=== PATIENT | male | born 1970 | race Caucasian/White ===

== ENCOUNTER 2017-08-21 14:43 | Inpatient (IN) ==
[2017-08-21] MEDS ORDERED: METOCLOPRAMIDE 10 MG/2 ML VIAL ONE (14:59)
[2017-08-21] MEDS ORDERED: ONDANSETRON 4 MG/2 ML VIAL ONE ×2 (14:59→15:16)
[2017-08-21] MEDS ORDERED: ONDANSETRON 4 MG/2 ML VIAL IV STA (15:00)
[2017-08-21] MEDS ORDERED: SODIUM CHLORIDE 0.9% 1,000 ML IV STA (15:00)
[2017-08-21] MEDS ORDERED: METOCLOPRAMIDE 10 MG/2 ML VIAL IV STA (15:00)
[2017-08-21] MEDS ORDERED: ASPIRIN 325 MG TABLET PO STA (15:04)
[2017-08-21] MEDS ORDERED: NITROGLYCERIN 2% OINT 1 INCH/GM PACK TOP STA (15:04)
[2017-08-21] MEDS ORDERED: TICAGRELOR 90 MG TABLET ONE (15:08)
[2017-08-21] MEDS ORDERED: NITROGLYCERIN 2% OINT 1 INCH/GM PACK TOP ONE (15:08)
[2017-08-21] MEDS ORDERED: HEPARIN 5,000 UNIT/1 ML VIAL ONE ×2 (15:09→15:53)
[2017-08-21] MEDS ORDERED: HEPARIN 5,000 UNIT/1 ML VIAL IV STA (15:09)
[2017-08-21] MEDS ORDERED: TICAGRELOR 90 MG TABLET PO STA (15:10)
[2017-08-21 15:16] LABS: Basophils # 0.1 10*3/uL (0.0-0.2); Basophils % 0.6 % (0.0-0.8); Eosinophils # 0.2 10*3/uL (0.0-0.87); Eosinophils % 1.6 % (0.00-10.9); Hematocrit 47.4 VOL% (42.0-52.0); Hemoglobin 16.6 GM/DL (14.0-18.0); Immature Granulocytes % 0.3 %; Immature Granulocytes Absolute 0.05 #; Lymphocytes # 3.8 10*3/uL (1.4-4.0); Lymphocytes % 26.3 % (21.2-54.2); Mean Corpuscular Hemoglobin 33 PG (27-34); Mean Corpuscular Volume 93.5 FL (87-102); Mean Platelet Volume 9.8 FL (9.6-12.0); Monocytes # 1.2 10*3/uL (0.11-0.8); Neutrophils # 9.1 10*3/uL (1.4-7.4); Neutrophils % 63.2 % (38.7-73.9); Platelet Count 268 T/CUMM (130-400); Red Blood Count 5.07 MC/CUMM (3.8-5.5); Red Cell Distribution Width 12.8 % (9.3-17.3); White Blood Count 14.3 T/CUMM (4-12)
[2017-08-21] MEDS ORDERED: MORPHINE 2 MG/1 ML SYRINGE ONE (15:16)
[2017-08-21 15:28] LABS: INR 1.1; PT Patient Result 11.7 SECS; Partial Thromboplastin Time 27.7 SECS (0-40)
[2017-08-21 15:34] LABS: Albumin 3.7 G/DL (3.4-5.0); Bilirubin,Total 0.5 MG/DL (0.2-1.0); Osmolality,Calculated 281.3 MOS/KG (273-304); Potassium 4.2 MMOL/L (3.5-5.1)
[2017-08-21] MEDS ORDERED: MIDAZOLAM 2 MG/2 ML VIAL ONE (15:36)
[2017-08-21] MEDS ORDERED: MEPERIDINE 25 MG/1 ML VIAL ONE (15:36)
[2017-08-21] MEDS ORDERED: LIDOCAINE 1% 20 ML VIAL ONE (15:36)
[2017-08-21] MEDS ORDERED: HYDROmorphone 2 MG/1 ML VIAL ONE (15:48)
[2017-08-21] MEDS ORDERED: MORPHINE 2 MG/1 ML SYRINGE IV ONE (15:59)
[2017-08-21] MEDS ORDERED: DOBUTamine 500 MG/250 ML PREMIX IV ONE ×2 (16:22→16:29)
[2017-08-21] MEDS ORDERED: ASPIRIN CHEW 81 MG TABLET PO ONE (16:47)
[2017-08-21] MEDS ORDERED: ACETAMINOPHEN/CODEINE 300-30 MG TABLET PO PRN (17:50)
[2017-08-21] MEDS ORDERED: MAGNESIUM SULF RIDER 4 GM in PREMIX 1 EACH IV PRN (17:50)
[2017-08-21] MEDS ORDERED: MAGNESIUM SULF RIDER 2 GM in PREMIX 1 EACH IV PRN (17:50)
[2017-08-21] MEDS ORDERED: ZALEPLON 5 MG CAPSULE PO PRN (17:50)
[2017-08-21] MEDS ORDERED: ACETAMINOPHEN 325 MG TABLET PO PRN (17:50)
[2017-08-21] MEDS ORDERED: SODIUM CHLORIDE 0.9% 1,000 ML IV SCH (18:00)
[2017-08-21] MEDS ORDERED: INFLUENZA VIRUS VACCINE 0.5 ML SYRINGE IM ONE (18:04)
[2017-08-21] MEDS: TICAGRELOR 90 MG TABLET PO SCH (21:39)
[2017-08-21] MEDS ORDERED: ROSUVASTATIN 10 MG TABLET PO SCH (22:00)
[2017-08-21 23:25] LABS: Risk Ratio 10.04; VLDL CHOLESTEROL 114.8 MG/DL
[2017-08-22 05:27] LABS: Basophils % 0.3 % (0.0-0.8); Eosinophils % 0.3 % (0.00-10.9); Hematocrit 39.1 VOL% (42.0-52.0); Immature Granulocytes % 0.4 %; Immature Granulocytes Absolute 0.05 #; Lymphocytes # 2.7 10*3/uL (1.4-4.0); Lymphocytes % 22.2 % (21.2-54.2); Mean Corpuscular HGB Conc 35.8 GM/DL (32-36); Mean Corpuscular Hemoglobin 33 PG (27-34); Mean Corpuscular Volume 92.7 FL (87-102); Mean Platelet Volume 10.2 FL (9.6-12.0); Monocytes % 8.2 % (1.7-12.7); Neutrophils # 8.2 10*3/uL (1.4-7.4); Neutrophils % 68.6 % (38.7-73.9); Platelet Count 200 T/CUMM (130-400); Red Blood Count 4.22 MC/CUMM (3.8-5.5); Red Cell Distribution Width 13.2 % (9.3-17.3); White Blood Count 11.9 T/CUMM (4-12)
[2017-08-22 06:03] LABS: Albumin 3.1 G/DL (3.4-5.0); Bilirubin,Total 0.6 MG/DL (0.2-1.0); Calcium 8.4 MG/DL (8.5-10.1); Osmolality,Calculated 281.3 MOS/KG (273-304); Potassium 4.1 MMOL/L (3.5-5.1); Total Protein 5.9 G/DL (6.4-8.3)
[2017-08-22] MEDS: ASPIRIN CHEW 81 MG TABLET PO SCH (09:48)
[2017-08-22] MEDS: TICAGRELOR 90 MG TABLET PO SCH ×2 (09:48→20:44)
[2017-08-22] MEDS: CARVEDILOL 3.125 MG TABLET PO SCH ×2 (09:48→20:44)
[2017-08-22] MEDS: ROSUVASTATIN 20 MG TABLET PO SCH (09:48)
[2017-08-22] MEDS: PANTOPRAZOLE 40 MG TABLET PO SCH (09:48)
[2017-08-22] MEDS ORDERED: LISINOPRIL 2.5 MG TABLET PO SCH (10:00)
[2017-08-22] MEDS ORDERED: BISACODYL 5 MG TABLET PO PRN (10:27)
[2017-08-22] MEDS ORDERED: guaiFENesin/DM ER 600-30 MG TABLET PO PRN (10:27)
[2017-08-22] MEDS ORDERED: diphenhydrAMINE CAP 25 MG CAPSULE PO PRN (10:27)
[2017-08-22] MEDS: buPROPion XL 150 MG TABLET PO SCH (11:25)
[2017-08-22] MEDS ORDERED: ONDANSETRON 4 MG/2 ML VIAL IV PRN (16:07)
[2017-08-22] MEDS: NICOTINE 21 MG/24 HR PATCH TRANSDERM SCH (17:21)
[2017-08-23 05:38] LABS: Basophils % 0.3 % (0.0-0.8); Eosinophils # 0.1 10*3/uL (0.0-0.87); Eosinophils % 1.4 % (0.00-10.9); Hematocrit 38.7 VOL% (42.0-52.0); Hemoglobin 13.6 GM/DL (14.0-18.0); Immature Granulocytes % 0.4 %; Immature Granulocytes Absolute 0.04 #; Lymphocytes # 2.6 10*3/uL (1.4-4.0); Lymphocytes % 28.3 % (21.2-54.2); Mean Corpuscular HGB Conc 35.1 GM/DL (32-36); Mean Corpuscular Hemoglobin 33 PG (27-34); Mean Corpuscular Volume 92.6 FL (87-102); Monocytes % 10.7 % (1.7-12.7); Neutrophils # 5.3 10*3/uL (1.4-7.4); Neutrophils % 58.9 % (38.7-73.9); Platelet Count 164 T/CUMM (130-400); Red Blood Count 4.18 MC/CUMM (3.8-5.5)
[2017-08-23 06:11] LABS: Albumin 3.3 G/DL (3.4-5.0); Bilirubin,Direct 0.18 MG/DL (0.0-0.20); Bilirubin,Indirect 0.8 MG/DL (0.0-1.0); Calcium 8.3 MG/DL (8.5-10.1); Magnesium 2.1 MG/DL (1.8-2.4); Osmolality,Calculated 283.1 MOS/KG (273-304); Potassium 3.7 MMOL/L (3.5-5.1); Risk Ratio 5.97; Total Protein 6.2 G/DL (6.4-8.3); VLDL CHOLESTEROL 46.8 MG/DL
[2017-08-23 07:03] LABS: Hepatitis A Ab IgM Quant 0.14 Index; Hepatitis A Ab IgM Result Negative (Negative); Hepatitis B Core IgM Quant 0.11 Index; Hepatitis B Core IgM Result Negative (Negative); Hepatitis B Surface Ag Quant < 0.10 Index; Hepatitis B Surface Ag Result Negative (Negative); Hepatitis C Virus Ab Quant > 11.00 Index; Hepatitis C Virus Ab Result Positive (Negative)
[2017-08-23] MEDS: buPROPion XL 150 MG TABLET PO SCH (08:18)
[2017-08-23] MEDS: CARVEDILOL 3.125 MG TABLET PO SCH (08:18)
[2017-08-23] MEDS: ASPIRIN CHEW 81 MG TABLET PO SCH (08:18)
[2017-08-23] MEDS: TICAGRELOR 90 MG TABLET PO SCH (08:18)
[2017-08-23] MEDS: NICOTINE 21 MG/24 HR PATCH TRANSDERM SCH (08:18)
[2017-08-23] MEDS: PANTOPRAZOLE 40 MG TABLET PO SCH (08:18)
[2017-08-23] MEDS: ROSUVASTATIN 20 MG TABLET PO SCH (08:18)
[2017-08-23] MEDS ORDERED: NICOTINE 21 MG/24 HR PATCH TRANSDERM SCH (09:00)
[2017-08-23] MEDS ORDERED: VALSARTAN 80 MG TABLET PO SCH (09:00)
[2017-08-23 12:04] VITALS: BP 135/92
== END 2017-08-23 12:05 | disposition home or self-care (01) | DRG 247 ==
LOC: EDUNIT# → N.ED 14:43 → N.CL 15:28 → N.ICU 16:34 → N.CL 16:35 → N.ICU 17:24 → N.TELEN 08-22 15:00
PROVIDERS: ADMIT Internal Medicine Cardiovascular Disease; ATTEND Internal Medicine Cardiovascular Disease
PROC: CLCCHCL (ICD-10-PCS; 2017-08-21 15:45)

== ENCOUNTER 2022-05-02 12:30 | Observation (INO) ==
[2022-05-02] MEDS ORDERED: KETOROLAC 30 MG/1 ML VIAL IV STA (12:58)
[2022-05-02] MEDS ORDERED: TICAGRELOR 90 MG TABLET PO STA (12:58)
[2022-05-02] MEDS ORDERED: ASPIRIN 325 MG TABLET PO STA (12:58)
[2022-05-02] MEDS: NITROGLYCERIN SL 0.4 MG TABLET SL PRN ×2 (12:59→13:04)
[2022-05-02 13:14] LABS: Basophils # 0.1 10*3/uL (0.0-0.2); Basophils % 0.6 % (0.0-0.8); Eosinophils # 0.2 10*3/uL (0.0-0.87); Eosinophils % 1.4 % (0.00-10.9); Hematocrit 49.6 VOL% (42.0-52.0); Hemoglobin 17.2 GM/DL (14.0-18.0); Immature Granulocytes % 0.4 %; Immature Granulocytes Absolute 0.05 #; Lymphocytes # 3.9 10*3/uL (1.4-4.0); Lymphocytes % 31.2 % (21.2-54.2); Mean Corpuscular HGB Conc 34.7 GM/DL (32-36); Mean Corpuscular Volume 94.1 FL (87-102); Mean Platelet Volume 10.2 FL (9.6-12.0); Monocytes # 0.9 10*3/uL (0.11-0.8); Neutrophils % 59.4 % (38.7-73.9); Platelet Count 224 T/CUMM (130-400); Red Blood Count 5.27 MC/CUMM (3.8-5.5); White Blood Count 12.4 T/CUMM (4-12)
[2022-05-02 13:22] LABS: PT Patient Result 11.1 SECS (10.1-12.1)
[2022-05-02 13:37] LABS: Albumin 3.9 G/DL (3.4-5.0); Bilirubin,Total 0.8 MG/DL (0.20-1.00); Calcium 8.9 MG/DL (8.5-10.1); Osmolality,Calculated 285.1 MOS/KG (273-304); Potassium 3.9 MMOL/L (3.5-5.1); Total Protein 7.3 G/DL (6.4-8.2)
[2022-05-02] MEDS ORDERED: GLUCAGON 1 MG VIAL IM PRN (17:08)
[2022-05-02] MEDS ORDERED: MORPHINE 2 MG/1 ML SYRINGE IV PRN (17:10)
[2022-05-02] MEDS ORDERED: SIMETHICONE CHEW 125 MG TABLET PO PRN (17:10)
[2022-05-02] MEDS ORDERED: CALCIUM CARBONATE CHEW 500 MG TABLET PO PRN (17:10)
[2022-05-02] MEDS ORDERED: ACETAMINOPHEN 325 MG TABLET PO PRN (17:10)
[2022-05-02] MEDS ORDERED: ONDANSETRON 4 MG/2 ML VIAL IV PRN (17:10)
[2022-05-02] MEDS ORDERED: DOCUSATE SODIUM 100 MG CAPSULE PO PRN (17:10)
[2022-05-02] MEDS ORDERED: hydrALAZINE 20 MG/1 ML VIAL IV PRN (17:10)
[2022-05-02] MEDS ORDERED: DEXTROSE 10% 250 ML BAG IV PRN (17:21)
[2022-05-02] MEDS ORDERED: ENOXAPARIN 40 MG/0.4 ML SYRINGE SUBCUT SCH (21:00)
[2022-05-02] MEDS: INSULIN LISPRO 100 UNIT/ML SUBCUT SCH (21:35)
[2022-05-02] MEDS: ATORVASTATIN 40 MG TABLET PO SCH (21:38)
[2022-05-02] MEDS: METOPROLOL TARTRATE 25 MG TABLET PO SCH (21:39)
[2022-05-03 04:58] LABS: Basophils # 0.1 10*3/uL (0.0-0.2); Basophils % 0.5 % (0.0-0.8); Eosinophils # 0.1 10*3/uL (0.0-0.87); Hematocrit 47.3 VOL% (42.0-52.0); Immature Granulocytes % 0.5 %; Immature Granulocytes Absolute 0.05 #; Lymphocytes # 3.2 10*3/uL (1.4-4.0); Lymphocytes % 28.7 % (21.2-54.2); Mean Corpuscular HGB Conc 33.8 GM/DL (32-36); Mean Platelet Volume 10.3 FL (9.6-12.0); Monocytes % 9.2 % (1.7-12.7); Neutrophils % 60.1 % (38.7-73.9); Platelet Count 208 T/CUMM (130-400); Red Blood Count 4.98 MC/CUMM (3.8-5.5); Red Cell Distribution Width 13.2 % (9.3-17.3); White Blood Count 11.1 T/CUMM (4-12)
[2022-05-03 05:26] LABS: Calcium 9.2 MG/DL (8.5-10.1); Osmolality,Calculated 286.8 MOS/KG (273-304); Potassium 4.2 MMOL/L (3.5-5.1); Risk Ratio 7.29; Thyroid Stimulating Hormone 1.99 uIU/ml (0.358-3.74); VLDL Cholesterol 48.2 MG/DL
[2022-05-03] MEDS: INSULIN LISPRO 100 UNIT/ML SUBCUT SCH ×4 (08:07→22:10)
[2022-05-03] MEDS: NICOTINE 21 MG/24 HR PATCH TRANSDERM SCH (08:41)
[2022-05-03] MEDS: PANTOPRAZOLE 40 MG TABLET PO SCH (08:41)
[2022-05-03] MEDS: METOPROLOL TARTRATE 25 MG TABLET PO SCH ×2 (08:41→21:20)
[2022-05-03] MEDS ORDERED: POTASSIUM CHLORIDE RIDER 10 MEQ/100 ML PREMIX IV PRN (08:58)
[2022-05-03] MEDS ORDERED: MAGNESIUM SULF RIDER 2 GM/50 ML PREMIX IV PRN (08:58)
[2022-05-03] MEDS ORDERED: CLOPIDOGREL 75 MG TABLET PO SCH (09:00)
[2022-05-03] MEDS ORDERED: ASPIRIN EC 81 MG TABLET PO SCH (09:00)
[2022-05-03] MEDS ORDERED: ASPIRIN EC 325 MG TABLET PO SCH (09:00)
[2022-05-03] MEDS ORDERED: HEPARIN/NACL 0.9% 2 UNITS/ML 3,000 UNIT/1,500 ML BAG IV ONE (09:16)
[2022-05-03] MEDS: TICAGRELOR 90 MG TABLET PO SCH ×2 (09:23→21:20)
[2022-05-03] MEDS ORDERED: MIDAZOLAM 2 MG/2 ML VIAL ONE ×2 (09:43→09:59)
[2022-05-03] MEDS ORDERED: fentaNYL 100 MCG/2 ML VIAL ONE ×2 (09:44→10:42)
[2022-05-03] MEDS ORDERED: HEPARIN 5,000 UNIT/1 ML VIAL ONE ×2 (10:10)
[2022-05-03] MEDS ORDERED: NITROGLYCERIN DRIP 50 MG/250 ML BOTTLE IV ONE (10:12)
[2022-05-03] MEDS: ATORVASTATIN 40 MG TABLET PO SCH (21:20)
[2022-05-04 05:19] LABS: Basophils # 0.1 10*3/uL (0.0-0.2); Basophils % 0.5 % (0.0-0.8); Eosinophils # 0.2 10*3/uL (0.0-0.87); Eosinophils % 1.7 % (0.00-10.9); Hematocrit 46.4 VOL% (42.0-52.0); Hemoglobin 15.5 GM/DL (14.0-18.0); Immature Granulocytes % 0.3 %; Immature Granulocytes Absolute 0.03 #; Lymphocytes # 3.4 10*3/uL (1.4-4.0); Lymphocytes % 35.4 % (21.2-54.2); Mean Corpuscular HGB Conc 33.4 GM/DL (32-36); Mean Corpuscular Volume 95.9 FL (87-102); Mean Platelet Volume 10.1 FL (9.6-12.0); Monocytes # 0.8 10*3/uL (0.11-0.8); Monocytes % 8.4 % (1.7-12.7); Neutrophils % 53.7 % (38.7-73.9); Platelet Count 184 T/CUMM (130-400); Red Blood Count 4.84 MC/CUMM (3.8-5.5); Red Cell Distribution Width 13.2 % (9.3-17.3); White Blood Count 9.6 T/CUMM (4-12)
[2022-05-04 05:46] LABS: Calcium 8.9 MG/DL (8.5-10.1); Potassium 4.1 MMOL/L (3.5-5.1)
[2022-05-04] MEDS: NICOTINE 21 MG/24 HR PATCH TRANSDERM SCH (08:43)
[2022-05-04] MEDS: METOPROLOL TARTRATE 25 MG TABLET PO SCH (08:44)
[2022-05-04] MEDS: PANTOPRAZOLE 40 MG TABLET PO SCH (08:44)
[2022-05-04] MEDS: TICAGRELOR 90 MG TABLET PO SCH (08:44)
[2022-05-04] MEDS: INSULIN LISPRO 100 UNIT/ML SUBCUT SCH (08:45)
[2022-05-04 08:52] VITALS: BP 115/68
[2022-05-04] MEDS ORDERED: ASPIRIN EC 81 MG TABLET PO SCH (09:00)
[2022-05-04] MEDS ORDERED: CLOPIDOGREL 300 MG TABLET PO ONE (12:00)
[2022-05-05] MEDS ORDERED: DAPAGLIFLOZIN 10 MG TABLET PO SCH (09:00)
== END 2022-05-04 11:25 | disposition home or self-care (01) ==
LOC: N.EDINP 12:30 → N.ED 12:30 → SUATTDRO 17:08 → N.EDINP 22:15 → N.TELES 22:29
PROVIDERS: ADMIT Family Medicine; ATTEND Internal Medicine Geriatric Medicine
PROC: CLCCHCL (ICD-10-PCS; 2022-05-03 09:15)